=== PATIENT | female | born 1990 | race Caucasian/White ===

== ENCOUNTER 2017-08-04 17:09 | Emergency (ER) | payer MEDICAID ==
[2017-08-04 17:23] VITALS: BP 121/77
[2017-08-04] MEDS ORDERED: Ondansetron 4 MG/2 ML SDV ONE (17:35)
[2017-08-04] MEDS ORDERED: Sodium Chloride 0.9% 1,000 ML ONE (17:35)
--- NOTE | 2017-08-04 18:04 | EDM.PDOC ---
ED HPI GENERAL MEDICAL PROBLEM - General Chief Complaint: General Stated Complaint: VOMITING/FEVER Time Seen by Provider: 08/04/17 17:35 Source of Information: Reports: Patient History Limitations: Reports: No Limitations - History of Present Illness INITIAL COMMENTS - FREE TEXT/NARRATIVE: 27 YO JEFF presents to ER with 3 day history of fever/chills, nausea/vomiting, and body aches. Pt reports she was seen by clinic 3 days ago and started on zpak , and tamiflu and states she began to feel worse. Vomiting started this am. Pt denies any shortness of breath, or chest pain. Onset Date: 08/02/17 Duration: Day(s): (3) Location: Reports: Generalized Severity: Mild Improves with: Reports: None Worsens with: Reports: None Associated Symptoms: Reports: Cough, Fever/Chills, Nausea/Vomiting - Related Data Allergies Allergy/AdvReac Type Severity Reaction Status Date / Time proactive Allergy Hives Uncoded 12/08/14 08:57 Home Meds: Home Meds Acetaminophen/HYDROcodone [Acetaminophen/HYDROcodone 108-2.5 MG/5 ML] 15 ml PO Q6H PRN 08/04/17 [History] Azithromycin [IJD: Azithromycin] 250 mg PO DAILY 08/04/17 [History] Levonorgestrel-Ethin Estradiol [Falmina-28 Tablet] 1 tab PO DAILY 08/04/17 [ History] Ondansetron [Zofran ODT] 4 mg PO Q6H PRN #6 tab.dis 08/04/17 [Rx] Oseltamivir [Tamiflu] 75 mg PO BID 08/04/17 [History] Past Medical History - Past Health History Medical/Surgical History: Denies Medical/Surgical History Social & Family History - Tobacco Use Smoking Status *Q: Current Every Day Smoker Years of Tobacco use: 7 Used Tobacco, but Quit: No Second Hand Smoke Exposure: No - Recreational Drug Use Recreational Drug Use: No ED ROS GENERAL - Review of Systems Review Of Systems: See Below Constitutional: Reports: Fever, Chills, Malaise HEENT: Reports: No Symptoms Respiratory: Reports: No Symptoms Cardiovascular: Reports: No Symptoms Endocrine: Reports: No Symptoms GI/Abdominal: Reports: Vomiting : Reports: No Symptoms Musculoskeletal: Reports: No Symptoms Skin: Reports: No Symptoms Neurological: Reports: No Symptoms Psychiatric: Reports: No Symptoms Hematologic/Lymphatic: Reports: No Symptoms Immunologic: Reports: No Symptoms ED EXAM, GENERAL - Physical Exam Exam: See Below Exam Limited By: No Limitations General Appearance: Alert, WD/WN, No Apparent Distress Nose: Normal Inspection, Normal Mucosa, No Blood Throat/Mouth: Normal Inspection, Normal Lips, Normal Teeth, Normal Gums, Normal Oropharynx, Normal Voice, No Airway Compromise Head: Atraumatic, Normocephalic Neck: Normal Inspection, Supple, Non-Tender, Full Range of Motion Respiratory/Chest: No Respiratory Distress, Lungs Clear, Normal Breath Sounds, No Accessory Muscle Use, Chest Non-Tender Cardiovascular: Normal Peripheral Pulses, Regular Rate, Rhythm, No Edema, No Gallop, No JVD, No Murmur, No Rub GI/Abdominal: Normal Bowel Sounds, Soft, Non-Tender, No Organomegaly, No Distention, No Abnormal Bruit, No Mass Back Exam: Normal Inspection, Full Range of Motion, NT Extremities: Normal Inspection, Normal Range of Motion, Non-Tender, Normal Capillary Refill, No Pedal Edema Neurological: Alert, Oriented, CN II-XII Intact, Normal Cognition, Normal Gait, Normal Reflexes, No Motor/Sensory Deficits Psychiatric: Normal Affect, Normal Mood Skin Exam: Warm, Dry, Intact, Normal Color, No Rash Lymphatic: No Adenopathy Course - Vital Signs Last Recorded V/S: Last Vital Signs Temp 36.4 C 08/04/17 17:21 Pulse 76 08/04/17 17:21 Resp 16 08/04/17 17:21 BP 121/77 08/04/17 17:21 Pulse Ox 95 08/04/17 17:21 - Orders/Labs/Meds Orders: Active Orders 24 hr Category Date Time Status Chest 2V [CR] Stat Exams 08/04/17 17:27 Taken Sodium Chloride 0.9% [Normal Saline] 1,000 ml Med 08/04/17 18:14 Active IV .BOLUS Medication Orders Sodium Chloride (Normal Saline) 1,000 mls @ 999 mls/hr IV .BOLUS ONE Stop: 08/04/17 19:14 Labs: Laboratory Tests 08/04/17 08/04/17 08/04/17 Range/Units 06:35 06:35 17:35 WBC 5.9 (5.0-10.0) 10^3/uL RBC 4.59 (3.80-5.50) 10^6/uL Hgb 13.5 (12.0-16.0) g/dL Hct 41.5 (37.0-47.0) % MCV 90.3 (82.0-92.0) fL MCH 29.5 (27.0-31.0) pg MCHC 32.6 (32.0-36.0) g/dL RDW 12.1 (11.5-14.5) % Plt Count 223 (150-300) 10^3/uL MPV 7.6 (7.4-10.4) fL Neut % (Auto) 48.3 L (50.0-70.0) % Lymph % (Auto) 44.2 H (20.0-40.0) % [place] % (Auto) 6.3 (2.0-8.0) % Eos % (Auto) 1.1 (1.0-3.0) % Baso % (Auto) 0.1 (0.0-1.0) % Neut # (Auto) 2.8 (2.5-7.0) 10^3/uL Lymph # (Auto) 2.6 (1.0-4.0) 10^3/uL [place] # (Auto) 0.4 (0.1-0.8) 10^3/uL Eos # (Auto) 0.1 (0.1-0.3) 10^3/uL Baso # (Auto) 0.0 (0.0-0.1) 10^3/uL Sodium 142 (136-145) mmol/L Potassium 3.9 (3.3-5.3) mmol/L Chloride 106 (98-115) mmol/L Carbon Dioxide 25.0 (21.0-32.0) mmol/L BUN 6 (6-25) mg/dL Creatinine 0.90 (0.51-1.17) mg/dL Est Cr Clr Drug Dosing 80.36 mL/min Estimated GFR (MDRD) > 60 mL/min Glucose 88 (70-110) mg/dL Calcium 8.2 L (8.7-10.3) mg/dL Total Bilirubin 0.3 (0.2-1.0) mg/dL AST 22 (15-37) U/L ALT 32 (12-78) U/L Alkaline Phosphatase 42 L (46-116) IU/L Total Protein 7.2 (6.4-8.2) g/dL Albumin 3.37 (3.00-4.80) g/dL Lipase 80 (73-393) U/L HCG, Qual Negative (NEGATIVE) Specimen Type Urinvoid Urine Color Yellow (YELLOW) Urine Appearance Slightly cloudy H (CLEAR) Urine pH 6.5 (5.0-9.0) Ur Specific [place] 1.025 (1.005-1.030) Urine Protein Negative (NEGATIVE) mg/dL Urine Glucose (UA) Negative (NEGATIVE) mg/dL Urine Ketones Trace H (NEGATIVE) mg/dL Urine Occult Blood Negative (NEGATIVE) Urine Nitrite Negative (NEGATIVE) Urine Bilirubin Negative (NEGATIVE) Urine Urobilinogen 1.0 (0.2-1.0) E.U./dL Ur Leukocyte Esterase Trace H (NEGATIVE) Urine RBC 0-5 /HPF Urine WBC 5-10 H /HPF Ur Epithelial Cells Moderate H /LPF Urine Bacteria Few (NONE TO FEW) /HPF Meds: Medications Generic Name Dose Route Start Last Admin Trade Name Freq PRN Reason Stop Dose Admin Sodium Chloride 1,000 mls @ 999 mls/hr 08/04/17 18:14 Normal Saline IV 08/04/17 19:14 .BOLUS ONE Discontinued Medications Generic Name Dose Route Start Last Admin Trade Name Freq PRN Reason Stop Dose Admin Sodium Chloride Confirm 08/04/17 17:35 08/04/17 18:13 Normal Saline Administered 08/04/17 17:36 Not Given Dose 1,000 mls @ as directed .ROUTE .STK-MED ONE Ondansetron HCl Confirm 08/04/17 17:35 08/04/17 18:13 Zofran Administered 08/04/17 17:36 Not Given Dose 4 mg .ROUTE .STK-MED ONE Ondansetron HCl 4 mg 08/04/17 18:14 Zofran IVPUSH 08/04/17 18:15 ONETIME ONE - Radiology Interpretation Free Text/Narrative:: CXR- NAD Departure - Departure Time of Disposition: 18:16 Disposition: Home, Self-Care 01 Condition: Fair Clinical Impression: Viral illness, Fever chills - Discharge Information Prescriptions: Ondansetron [Zofran ODT] 4 mg PO Q6H PRN #6 tab.dis PRN Reason: Vomiting Instructions: Nausea, Adult, Upper Respiratory Infection, Adult, [id number] Referrals: Elizabeth Begum PA-C [Primary Care Provider] - Forms: ED Department Discharge - My Orders Last 24 Hours: My Active Orders 08/04/17 17:27 Chest 2V [CR] Stat 08/04/17 18:14 Sodium Chloride 0.9% [Normal Saline] 1,000 ml IV .BOLUS - Assessment/Plan Last 24 Hours: My Active Orders 08/04/17 17:27 Chest 2V [CR] Stat 08/04/17 18:14 Sodium Chloride 0.9% [Normal Saline] 1,000 ml IV .BOLUS Assessment:: 1. viral syndrome 2. vomiting Plan: 1. stop zpak 2. stop tamiflu 3. start zofran 4mg ODT Q8 PRN vomiting 4. clear liquid diet and progress as tolerated 5. follow up in clinic in 48 hours for recheck 6. tylenol/motrin for fever/chills and body aches
[2017-08-04 18:08] LABS: CHLORIDE,CL 106 mmol/L (98-115); SODIUM,NA 142 mmol/L (136-145)
[2017-08-04] MEDS ORDERED: Sodium Chloride 0.9% 1,000 ML IV ONE (18:14)
[2017-08-04] MEDS ORDERED: Ondansetron 4 MG/2 ML SDV IVPUSH ONE (18:14)
[2017-08-04] MEDS ORDERED: Ondansetron 4 MG Tab.DIS PO PRN (18:17)
== END 2017-08-04 19:00 | disposition home or self-care (01) ==
LOC: KA.ED 17:09
DX: B34.9 Viral infection, unspecified (principal); F17.200 Nicotine dependence, unspecified, uncomplicated; Z79.2 Long term (current) use of antibiotics
CPT/HCPCS: 36415; 71046; 80053; 81001; 83690; 84703; 85025; 96361; 96374; 99283; A9270; J2405; J7030

== ENCOUNTER 2019-06-29 10:51 | Emergency (ER) | payer BC, MEDICAID ==
[2019-06-29 11:10] VITALS: BP 119/78; PULSE 90
[2019-06-29] MEDS ORDERED: cefTRIAXone 1 GM Vial IM ONE (11:27)
[2019-06-29] MEDS ORDERED: Ondansetron 4 MG Tab.DIS PO ONE ×2 (11:33)
[2019-06-29] MEDS ORDERED: Lidocaine 1% 20 ML MDV ONE (11:37)
--- NOTE | 2019-06-29 11:37 | EDM.PDOC ---
ED HPI GENERAL MEDICAL PROBLEM - General Chief Complaint: General Stated Complaint: FEVERS,LEFT SIDE JAW PAIN Time Seen by Provider: 06/29/19 11:26 Source of Information: Reports: Patient History Limitations: Reports: No Limitations - History of Present Illness INITIAL COMMENTS - FREE TEXT/NARRATIVE: Patient is a 28-year-old female who presents to the emergency department this morning with a complaint of toothache. Patient states that she underwent dental procedure on June 27 for tooth extraction. Patient states she's had pain in left upper jaw since. Feels she is febrile. Patient is 12 weeks . Patient denies vaginal bleeding, abdominal pain or cramping, difficulty swallowing, chest pain, shortness of breath, or any high risk . 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 Left Face/Facial Pain Score (Numeric/FACES): 8 - Related Data Allergies Allergy/AdvReac Type Severity Reaction Status Date / Time proactive Allergy Swelling Uncoded 06/29/19 11:05 Home Meds: Home Meds Acetaminophen [Tylenol] 650 mg pe PO Q4HWA 06/29/19 [History] Amoxicillin/Clavulanate K [Augmentin 875-125 MG] 1 tab PO BID #14 tablet [Rx] Pnv No.95/Ferrous Fum/Folic AC [ Multivitamin Tablet] 1 tab PO DAILY [History] Past Medical History - Past Health History Medical/Surgical History: Denies Medical/Surgical History Gastrointestinal History: Reports: Cholelithiasis, Gastritis, PUD Musculoskeletal History: Reports: Arthritis, Back Pain, Chronic, Osteoarthritis , Other (See Below) Other Musculoskeletal History: Patient with chronic low back pain with evidence of T11-T12 right paracentral disc prolapse by incidental finding on CT scan of the abdomen on 07/03/18. Psychiatric History: Reports: Addiction, Anxiety, Depression, Psych Hospitalization(s), Suicide Attempt, Suicidal Ideation, Other (See Below) Other Psychiatric History: History of probable alcohol and illicit drug abuse per emergency room note in this facility on 02/09/11 with patient referred to [facility] in [place] at that time. Patient denies previous substance abuse problem, however previous records show an additional previous inpatient treatment for substance abuse, depression, etc. even before previous referral. Endocrine/Metabolic History: Reports: Obesity/BMI 30+ - Past Surgical History GI Surgical History: Reports: Appendectomy, Cholecystectomy, EGD, Other (See Below) Other GI Surgeries/Procedures: Appendectomy at age 16. Laparoscopic cholecystectomy on 05/27/18. EGD with biopsy with possible gastric ulcer diagnosed on 07/12/18. - Past Imaging History Past Imaging History: Reports: CAT Scan (CT of the abdomen and pelvis with contrast on 07/03/18. CT of the brain on 12/01/15.), MRI (MRI of the pelvis on 05/01.), Ultrasound (Abdominal ultrasound on 01/31/18 with pelvic ultrasound on . Multiple previous OB ultrasounds.) Social & Family History - Family History Family Medical History: Noncontributory - Tobacco Use Smoking Status *Q: Current Every Day Smoker Years of Tobacco use: 7 Packs/Tins Daily: 1 - Caffeine Use Caffeine Use: Reports: Soda - Recreational Drug Use Recreational Drug Use: No - Living Situation & Occupation Living situation: Reports: Single, with Significant Other (And her 2 children from another significant other relationship). Denies: , Occupation: Employed ([employer] ED ROS GENERAL - Review of Systems Review Of Systems: Comprehensive ROS is negative, except as noted in HPI. Constitutional: Reports: Fever HEENT: Reports: Dental Pain. Denies: Throat Pain, Throat Swelling Respiratory: Reports: No Symptoms Cardiovascular: Reports: No Symptoms Endocrine: Reports: No Symptoms GI/Abdominal: Reports: No Symptoms : Reports: No Symptoms Musculoskeletal: Reports: No Symptoms Skin: Reports: No Symptoms Neurological: Reports: No Symptoms Psychiatric: Reports: No Symptoms Hematologic/Lymphatic: Reports: No Symptoms Immunologic: Reports: No Symptoms ED EXAM, GENERAL - Physical Exam Exam: See Below Exam Limited By: No Limitations General Appearance: Alert, WD/WN Eye Exam: Bilateral Eye: Normal Inspection Ears: Normal Canal, Normal TMs Nose: Normal Inspection, Normal Mucosa, No Blood Throat/Mouth: Normal Oropharynx, Other (Left upper molar area of extraction shows mild erythema. No buccal involvement or abscess noted) Head: Atraumatic, Normocephalic Neck: Normal Inspection, Supple. No: Lymphadenopathy (L), Lymphadenopathy (R) Respiratory/Chest: No Respiratory Distress, Lungs Clear, Normal Breath Sounds, No Accessory Muscle Use, Chest Non-Tender Cardiovascular: Normal Peripheral Pulses, Regular Rate, Rhythm, No Murmur GI/Abdominal: Normal Bowel Sounds, Soft, Non-Tender Back Exam: Normal Inspection. No: CVA Tenderness (L), CVA Tenderness (R) Extremities: Normal Inspection, No Pedal Edema Neurological: Alert, Oriented, Normal Cognition Psychiatric: Normal Affect, Normal Mood Skin Exam: Warm, Dry, Intact, Normal Color, No Rash Lymphatic: No Adenopathy Course - Vital Signs Last Recorded V/S: Last Vital Signs Temp 97.6 F 06/29/19 11:06 Pulse 90 06/29/19 11:06 Resp 20 06/29/19 11:06 BP 119/78 06/29/19 11:06 Pulse Ox 98 06/29/19 11:06 - Orders/Labs/Meds Meds: Medications Discontinued Medications Generic Name Dose Route Start Last Admin Trade Name Freq PRN Reason Stop Dose Admin Ceftriaxone Sodium 1 gm 06/29/19 11:27 Rocephin IM 06/29/19 11:28 ONETIME ONE - Re-Assessments/Exams Free Text/Narrative Re-Assessment/Exam: 06/29/19 11:41 Patient afebrile, vital signs stable, given 1 g Rocephin IM and 4 mg Zofran. Patient is 12 weeks . Narcotics will be held at this point. Patient given prescription for Augmentin and instructed to follow-up with dentist tomorrow. Departure - Departure Time of Disposition: 11:42 Disposition: Home, Self-Care 01 Condition: Good Clinical Impression: Dental infection, Toothache - Discharge Information Prescriptions: Amoxicillin/Clavulanate K [Augmentin 875-125 MG] 1 tab PO BID #14 tablet Instructions: Dental Extraction, Care After, [id number], Dental Dry Socket, [id number] Referrals: Malolry Galarza NP [Primary Care Provider] - Additional Instructions: Follow-up with dentist tomorrow. Take medication as directed. Return to emergency department if symptoms continue or worsen. Sepsis Event Note - Evaluation Sepsis Screening Result: No Definite Risk - Focused Exam Vital Signs: Vital Signs Temp Pulse Resp BP Pulse Ox 06/29/19 11:06 97.6 F 90 20 119/78 98 Date Exam was Performed: 06/29/19 Time Exam was Performed: 11:31 - Assessment/Plan Assessment:: Dental infection Plan: Follow-up with dentist on Sunday
== END 2019-06-29 12:05 | disposition home or self-care (01) ==
LOC: KA.ED 10:51
DX: O99.611 Diseases of the digestive system complicating pregnancy, first trimester (principal); K04.7 Periapical abscess without sinus; O99.211 Obesity complicating pregnancy, first trimester; E66.9 Obesity, unspecified; O99.331 Smoking (tobacco) complicating pregnancy, first trimester; F17.210 Nicotine dependence, cigarettes, uncomplicated; Z91.09 Other allergy status, other than to drugs and biological substances; Z3A.12 12 weeks gestation of pregnancy
CPT/HCPCS: 96372; 99283-25; 99284; A9270-GY; J0696

== ENCOUNTER 2022-08-30 20:29 | Emergency (ER) | payer MEDICAID ==
[2022-08-30 20:58] VITALS: BP 145/103; PULSE 101
[2022-08-30] MEDS ORDERED: Cefdinir 300 MG Cap PO ONE (21:31)
== END 2022-08-30 21:40 | disposition home or self-care (01) ==
LOC: KA.ED 20:29
DX: J02.9 Acute pharyngitis, unspecified (principal); H66.93 Otitis media, unspecified, bilateral; F17.210 Nicotine dependence, cigarettes, uncomplicated; E66.9 Obesity, unspecified; Z68.41 Body mass index [BMI] 40.0-44.9, adult; Z88.8 Allergy status to other drugs, medicaments and biological substances; Z79.899 Other long term (current) drug therapy
CPT/HCPCS: 71045; 87651-QW; 99283; A9270-GY

== ENCOUNTER 2022-10-31 06:28 | Day surgery (SDC) | payer MEDICAID ==
[2022-10-31] MEDS ORDERED: Lactated Ringers 1,000 ML IV SCH (06:30)
[2022-10-31] MEDS ORDERED: Sodium Chloride 0.9% 10 ML Syringe FLUSH PRN (06:30)
[2022-10-31] MEDS ORDERED: Albuterol/Ipratropium 3.0-0.5 MG/3 ML Neb Soln NEB ONE (07:28)
[2022-10-31] MEDS ORDERED: Propofol 200 MG/20 ML SDV ONE (07:35)
[2022-10-31] MEDS ORDERED: Midazolam 1 MG/ML 2 ML SDV ONE (07:35)
[2022-10-31] MEDS ORDERED: Glycopyrrolate 0.2 MG/ML SDV ONE (07:36)
[2022-10-31] MEDS ORDERED: Lidocaine 2% 5 ML SDV ONE (07:36)
[2022-10-31 10:34] VITALS: BP 126/65; PULSE 95
== END 2022-10-31 09:50 | disposition home or self-care (01) ==
LOC: KA.SDS 06:28
PROVIDERS: ATTEND Family Medicine
DX: K21.00 Gastro-esophageal reflux disease with esophagitis, without bleeding (principal); K29.70 Gastritis, unspecified, without bleeding; K44.9 Diaphragmatic hernia without obstruction or gangrene; K25.9 Gastric ulcer, unspecified as acute or chronic, without hemorrhage or perforation; F17.210 Nicotine dependence, cigarettes, uncomplicated; Z79.899 Other long term (current) drug therapy; Z86.16 Personal history of COVID-19; Z88.3 Allergy status to other anti-infective agents
CPT/HCPCS: 00731; 81025; J2250; J2704; J3490; J7120; J7620-GY

== ENCOUNTER 2022-11-20 21:40 | Emergency (ER) | payer MEDICAID ==
[2022-11-20 22:15] LABS: BASOPHILS ABSOLUTE AUTO 0.01 10^3/uL (0.00-0.10); BASOPHILS PERCENT AUTO 0.2 % (0.0-1.0); EOSINOPHILS ABSOLUTE AUTO 0.05 10^3/uL (0.10-0.30); EOSINOPHILS PERCENT AUTO 0.8 % (1.0-3.0); HEMATOCRIT 36.4 % (37.0-47.0); HEMOGLOBIN 11.7 g/dL (12.0-16.0); IMMATURE GRAN ABSOLUTE AUTO 0.01 10^3/uL (0.00-0.50); IMMATURE GRAN PERCENT AUTO 0.2 % (0.0-5.0); LYMPHOCYTES ABSOLUTE AUTO 2.36 10^3/uL (1.00-4.00); LYMPHOCYTES PERCENT AUTO 39.9 % (20.0-40.0); MEAN CORPUSCULAR HEMOGLOBIN 26.7 pg (27.0-31.0); MEAN CORPUSCULAR HGB CONC 32.1 g/dL (32.0-36.0); MEAN CORPUSCULAR VOLUME 83.1 fL (82.0-92.0); MEAN PLATELET VOLUME 9.5 fL (7.4-10.4); MONOCYTES ABSOLUTE AUTO 0.39 10^3/uL (0.10-0.80); MONOCYTES PERCENT AUTO 6.6 % (2.0-8.0); NEUTROPHILS PERCENT AUTO 52.3 % (50.0-70.0); PLATELET COUNT,PLT 232 10^3/uL (150-400); RED BLOOD CELL COUNT 4.38 10^6/uL (3.80-5.50); RED CELL DISTRIBUTION WIDTH 14.5 % (11.5-14.5); WHITE BLOOD CELL COUNT,WBC 5.92 10^3/uL (5.00-10.00)
[2022-11-20 22:30] LABS: ALBUMIN 3.42 g/dL (3.40-5.00); ANION GAP 15.4 mmol/L (5-15); BILIRUBIN TOTAL 0.2 mg/dL (0.2-1.0); CALCIUM 8.6 mg/dL (8.7-10.3); CARBON DIOXIDE,CO2 27.4 mmol/L (21.0-32.0); CREATININE 0.88 mg/dL (0.51-1.17); EST CRCL DRUG DOSING (CG) 78.52 mL/min; POTASSIUM,K 3.8 mmol/L (3.5-5.1); PROTEIN TOTAL,TP 7.1 g/dL (6.4-8.2)
[2022-11-20 22:53] LABS: INFLUENZA A NAA NEGATIVE (NEGATIVE); INFLUENZA B NAA NEGATIVE (NEGATIVE); RESPIRATORY SYNCYTIAL VIR NAA NEGATIVE (NEGATIVE)
[2022-11-20 22:55] LABS: CORONAVIRUS COVID-19 NAA NEGATIVE (NEGATIVE)
[2022-11-21 00:34] VITALS: BP 142/90; PULSE 82
== END 2022-11-20 23:15 | disposition home or self-care (01) ==
LOC: KA.ED 21:40
DX: R05.3 Chronic cough (principal); K44.9 Diaphragmatic hernia without obstruction or gangrene; D64.9 Anemia, unspecified; J45.909 Unspecified asthma, uncomplicated; K21.9 Gastro-esophageal reflux disease without esophagitis; F17.210 Nicotine dependence, cigarettes, uncomplicated; E66.9 Obesity, unspecified; Z79.899 Other long term (current) drug therapy; Z86.16 Personal history of COVID-19; Z20.822 Contact with and (suspected) exposure to COVID-19; Z68.39 Body mass index [BMI] 39.0-39.9, adult
CPT/HCPCS: 0241U; 71046; 80053; 85025; 99283; 99284

== ENCOUNTER 2023-02-04 05:30 | Emergency (ER) | payer MEDICAID ==
[2023-02-04] MEDS ORDERED: Sodium Chloride 0.9% 10 ML Syringe FLUSH PRN (05:33)
[2023-02-04] MEDS ORDERED: Sodium Chloride 0.9% 1,000 ML IV ONE (05:35)
[2023-02-04] MEDS ORDERED: Ondansetron 4 MG/2 ML SDV ONE (05:43)
[2023-02-04] MEDS ORDERED: Ondansetron 4 MG/2 ML SDV IVPUSH ONE (05:43)
[2023-02-04 05:58] LABS: BASOPHILS ABSOLUTE AUTO 0.02 10^3/uL (0.00-0.10); BASOPHILS PERCENT AUTO 0.3 % (0.0-1.0); EOSINOPHILS ABSOLUTE AUTO 0.07 10^3/uL (0.10-0.30); EOSINOPHILS PERCENT AUTO 0.9 % (1.0-3.0); HEMATOCRIT 38.7 % (37.0-47.0); HEMOGLOBIN 12.7 g/dL (12.0-16.0); IMMATURE GRAN ABSOLUTE AUTO 0.04 10^3/uL (0.00-0.50); IMMATURE GRAN PERCENT AUTO 0.5 % (0.0-5.0); MEAN CORPUSCULAR HEMOGLOBIN 28.1 pg (27.0-31.0); MEAN CORPUSCULAR HGB CONC 32.8 g/dL (32.0-36.0); MEAN CORPUSCULAR VOLUME 85.6 fL (82.0-92.0); MEAN PLATELET VOLUME 9.1 fL (7.4-10.4); MONOCYTES ABSOLUTE AUTO 0.37 10^3/uL (0.10-0.80); MONOCYTES PERCENT AUTO 4.7 % (2.0-8.0); NEUTROPHILS ABSOLUTE AUTO 4.82 10^3/uL (2.50-7.00); NEUTROPHILS PERCENT AUTO 61.6 % (50.0-70.0); PLATELET COUNT,PLT 251 10^3/uL (150-400); RED BLOOD CELL COUNT 4.52 10^6/uL (3.80-5.50); RED CELL DISTRIBUTION WIDTH 14.3 % (11.5-14.5); WHITE BLOOD CELL COUNT,WBC 7.82 10^3/uL (5.00-10.00)
[2023-02-04 06:22] LABS: ALANINE AMINOTRANSFERASE,ALT 77 U/L (14-63); ALBUMIN 3.55 g/dL (3.40-5.00); ALKALINE PHOSPHATASE 60 U/L (46-116); ASPARTATE AMNIOTRANSFERASE,AST 54 U/L (15-37); BILIRUBIN TOTAL 0.3 mg/dL (0.2-1.0); BLOOD UREA NITROGEN,BUN 7 mg/dL (7-18); CALCIUM 8.1 mg/dL (8.7-10.3); CARBON DIOXIDE,CO2 27.3 mmol/L (21.0-32.0); CHLORIDE,CL 101 mmol/L (98-107); CREATININE 0.88 mg/dL (0.51-1.17); EST CRCL DRUG DOSING (CG) 81.82 mL/min; GLUCOSE RANDOM 125 mg/dL (70-140); POTASSIUM,K 3.3 mmol/L (3.5-5.1); PROTEIN TOTAL,TP 7.3 g/dL (6.4-8.2); SODIUM,NA 142 mmol/L (136-145)
[2023-02-04 06:35] LABS: ESTIMATED GFR 89 mL/min (>=60)
[2023-02-04 06:36] LABS: ACETAMINOPHEN < 0.0 ug/mL (10.0-30.0)
[2023-02-04 06:37] LABS: ETHANOL BLOOD MEDICAL 240 mg/dL (NOT DETECTED)
[2023-02-04] MEDS ORDERED: Sodium Chloride 0.9% 1,000 ML ONE (06:52)
[2023-02-04] MEDS ORDERED: Sodium Chloride 0.9% 1,000 ML IV SCH (07:00)
[2023-02-04 07:46] VITALS: BP 130/78; PULSE 96
== END 2023-02-04 07:40 ==
LOC: KA.ED 05:30
DX: T39.312A Poisoning by propionic acid derivatives, intentional self-harm, initial encounter (principal); F10.920 Alcohol use, unspecified with intoxication, uncomplicated; J45.909 Unspecified asthma, uncomplicated; K21.9 Gastro-esophageal reflux disease without esophagitis; E66.9 Obesity, unspecified; Z68.41 Body mass index [BMI] 40.0-44.9, adult; Z79.899 Other long term (current) drug therapy; Z86.16 Personal history of COVID-19; Z88.8 Allergy status to other drugs, medicaments and biological substances
CPT/HCPCS: 71045; 80053; 80143; 80307; 83605; 84703; 85025; 93005; 93010; 96361; 96374; 99284; 99285-25; J2405; J7030

== ENCOUNTER 2024-02-12 04:36 | Inpatient (IN) | payer MEDICAID ==
[2024-02-12] MEDS: Ondansetron 4 MG/2 ML SDV IVPUSH ONE (05:05)
[2024-02-12] MEDS: Sodium Chloride 0.9% 1,000 ML IV ONE ×2 (05:05→06:06)
[2024-02-12 05:19] LABS: BASOPHILS ABSOLUTE AUTO 0.01 10^3/uL (0.00-0.10); BASOPHILS PERCENT AUTO 0.1 % (0.0-1.0); EOSINOPHILS ABSOLUTE AUTO 0.06 10^3/uL (0.10-0.30); EOSINOPHILS PERCENT AUTO 0.7 % (1.0-3.0); HEMATOCRIT 39.8 % (37.0-47.0); HEMOGLOBIN 12.9 g/dL (12.0-16.0); IMMATURE GRAN ABSOLUTE AUTO 0.03 10^3/uL (0.00-0.50); IMMATURE GRAN PERCENT AUTO 0.3 % (0.0-5.0); LYMPHOCYTES ABSOLUTE AUTO 3.87 10^3/uL (1.00-4.00); LYMPHOCYTES PERCENT AUTO 43.5 % (20.0-40.0); MEAN CORPUSCULAR HEMOGLOBIN 26.9 pg (27.0-31.0); MEAN CORPUSCULAR HGB CONC 32.4 g/dL (32.0-36.0); MEAN CORPUSCULAR VOLUME 82.9 fL (82.0-92.0); MEAN PLATELET VOLUME 9.4 fL (7.4-10.4); MONOCYTES ABSOLUTE AUTO 0.57 10^3/uL (0.10-0.80); MONOCYTES PERCENT AUTO 6.4 % (2.0-8.0); NEUTROPHILS ABSOLUTE AUTO 4.36 10^3/uL (2.50-7.00); PLATELET COUNT,PLT 278 10^3/uL (150-400); RED CELL DISTRIBUTION WIDTH 14.7 % (11.5-14.5)
[2024-02-12 05:32] LABS: ACETAMINOPHEN 293.3 ug/mL (10.0-30.0); ALBUMIN 3.52 g/dL (3.40-5.00); ANION GAP 15.5 mmol/L (5-15); BILIRUBIN TOTAL 0.2 mg/dL (0.2-1.0); CALCIUM 8.1 mg/dL (8.7-10.3); CARBON DIOXIDE,CO2 26.9 mmol/L (21.0-32.0); CREATININE 0.9 mg/dL (0.51-1.17); EST CRCL DRUG DOSING (CG) 79.25 mL/min; POTASSIUM,K 3.4 mmol/L (3.5-5.1); PROTEIN TOTAL,TP 7.6 g/dL (6.4-8.2)
[2024-02-12] MEDS: Omeprazole 20 MG Cap.CR PO ONE (06:32)
[2024-02-12 08:19] LABS: ACETAMINOPHEN 269.3 ug/mL (10.0-30.0)
[2024-02-12] MEDS: Acetylcysteine 15,000 MG in Dextrose 5% in Water 200 ML IV ONE (09:07)
[2024-02-12] MEDS: Sodium Chloride 0.9% 1,000 ML IV SCH (09:14)
[2024-02-12] MEDS: Acetylcysteine 5,000 MG in Dextrose 5% in Water 500 ML IV ONE (10:21)
[2024-02-12] MEDS: Sodium Chloride 0.9% 1,000 ML ONE (10:21)
[2024-02-12] MEDS ORDERED: Ondansetron 4 MG/2 ML SDV IV PRN (11:30)
[2024-02-12] MEDS ORDERED: Albuterol 8 GM Inhaler INH PRN (11:34)
[2024-02-12 12:04] LABS: ALBUMIN 2.91 g/dL (3.40-5.00); ANION GAP 17.2 mmol/L (5-15); BILIRUBIN TOTAL 0.2 mg/dL (0.2-1.0); CALCIUM 7.4 mg/dL (8.7-10.3); CARBON DIOXIDE,CO2 23.8 mmol/L (21.0-32.0); CREATININE 0.58 mg/dL (0.51-1.17); EST CRCL DRUG DOSING (CG) 122.98 mL/min; PROTEIN TOTAL,TP 6.7 g/dL (6.4-8.2)
[2024-02-12 12:15] LABS: INR 1.1 (0.9-1.1)
[2024-02-12] MEDS: Topiramate 25 MG Tab PO SCH (13:22)
[2024-02-12] MEDS: Thiamine 100 MG Tab PO SCH (13:22)
[2024-02-12] MEDS: Folic Acid 1 MG Tab PO SCH (13:22)
[2024-02-12] MEDS: Acetylcysteine 10,000 MG in Dextrose 5% in Water 1,000 ML IV ONE (14:26)
[2024-02-12] MEDS: Nicotine 14 MG/24 Hr Patch TRDERM SCH (19:28)
[2024-02-12] MEDS: QUEtiapine 25 MG Tab PO SCH (21:05)
[2024-02-13 04:39] LABS: BASOPHILS ABSOLUTE AUTO 0.02 10^3/uL (0.00-0.10); BASOPHILS PERCENT AUTO 0.3 % (0.0-1.0); EOSINOPHILS ABSOLUTE AUTO 0.07 10^3/uL (0.10-0.30); EOSINOPHILS PERCENT AUTO 1.2 % (1.0-3.0); HEMATOCRIT 33.2 % (37.0-47.0); HEMOGLOBIN 10.6 g/dL (12.0-16.0); IMMATURE GRAN ABSOLUTE AUTO 0.02 10^3/uL (0.00-0.50); IMMATURE GRAN PERCENT AUTO 0.3 % (0.0-5.0); LYMPHOCYTES ABSOLUTE AUTO 2.84 10^3/uL (1.00-4.00); LYMPHOCYTES PERCENT AUTO 47.1 % (20.0-40.0); MEAN CORPUSCULAR HEMOGLOBIN 26.8 pg (27.0-31.0); MEAN CORPUSCULAR HGB CONC 31.9 g/dL (32.0-36.0); MEAN CORPUSCULAR VOLUME 84.1 fL (82.0-92.0); NEUTROPHILS ABSOLUTE AUTO 2.78 10^3/uL (2.50-7.00); NEUTROPHILS PERCENT AUTO 46.1 % (50.0-70.0); PLATELET COUNT,PLT 204 10^3/uL (150-400); RED BLOOD CELL COUNT 3.95 10^6/uL (3.80-5.50); WHITE BLOOD CELL COUNT,WBC 6.03 10^3/uL (5.00-10.00)
[2024-02-13 04:50] LABS: ACETAMINOPHEN 1.4 ug/mL (10.0-30.0); ALBUMIN 2.5 g/dL (3.40-5.00); ANION GAP 11.1 mmol/L (5-15); BILIRUBIN TOTAL 0.2 mg/dL (0.2-1.0); CALCIUM 7.8 mg/dL (8.7-10.3); CARBON DIOXIDE,CO2 26.8 mmol/L (21.0-32.0); CREATININE 0.9 mg/dL (0.51-1.17); EST CRCL DRUG DOSING (CG) 79.13 mL/min; POTASSIUM,K 3.9 mmol/L (3.5-5.1); PROTEIN TOTAL,TP 5.8 g/dL (6.4-8.2)
[2024-02-13 05:04] LABS: INR 1.1 (0.9-1.1); PROTHROMBIN TIME 11.3 SEC (9.3-12.2)
[2024-02-13] MEDS: Acetylcysteine 10,000 MG in Dextrose 5% in Water 1,000 ML IV ONE (07:06)
[2024-02-13] MEDS: Pantoprazole 40 MG Tab.CR PO SCH (09:36)
[2024-02-13] MEDS: FLUoxetine 10 MG Cap PO SCH (09:36)
[2024-02-13] MEDS: QUEtiapine 25 MG Tab PO SCH (09:39)
[2024-02-13 10:39] LABS: ALBUMIN 2.77 g/dL (3.40-5.00); BILIRUBIN TOTAL 0.2 mg/dL (0.2-1.0); CALCIUM 8.4 mg/dL (8.7-10.3); CARBON DIOXIDE,CO2 26.1 mmol/L (21.0-32.0); CREATININE 0.8 mg/dL (0.51-1.17); EST CRCL DRUG DOSING (CG) 89.02 mL/min; POTASSIUM,K 4.1 mmol/L (3.5-5.1); PROTEIN TOTAL,TP 6.4 g/dL (6.4-8.2)
[2024-02-13 11:35] VITALS: BP 113/80; PULSE 81
[2024-02-13] MEDS ORDERED: QUEtiapine 25 MG Tab PO SCH (21:00)
== END 2024-02-13 11:33 | disposition home or self-care (01) | DRG 918 ==
LOC: KA.ED 04:36 → KA.MS 09:34
PROVIDERS: ADMIT Internal Medicine; ATTEND Internal Medicine
DX: T39.1X4A Poisoning by 4-Aminophenol derivatives, undetermined, initial encounter (principal); T39.1X2A Poisoning by 4-Aminophenol derivatives, intentional self-harm, initial encounter; F10.920 Alcohol use, unspecified with intoxication, uncomplicated; Z86.16 Personal history of COVID-19; T14.91XA Suicide attempt, initial encounter; J45.909 Unspecified asthma, uncomplicated; K21.9 Gastro-esophageal reflux disease without esophagitis; M19.90 Unspecified osteoarthritis, unspecified site; M54.50 Low back pain, unspecified; G89.29 Other chronic pain; E66.9 Obesity, unspecified; R74.8 Abnormal levels of other serum enzymes; K44.9 Diaphragmatic hernia without obstruction or gangrene; F41.8 Other specified anxiety disorders; Z88.8 Allergy status to other drugs, medicaments and biological substances; Z79.51 Long term (current) use of inhaled steroids; Z79.899 Other long term (current) drug therapy; Z87.11 Personal history of peptic ulcer disease; Z68.39 Body mass index [BMI] 39.0-39.9, adult; Z90.49 Acquired absence of other specified parts of digestive tract; Z98.890 Other specified postprocedural states
CPT/HCPCS: 36415; 80053; 80143; 80179; 80307; 85025; 85610; 96361; 96365; 96375; 99223-GT; 99238-GT; 99285-25; A9270-GY; J0132; J2405; J7030; J7060; Q3014

== ENCOUNTER 2024-11-21 03:42 | Emergency (ER) | payer MEDICAID ==
[2024-11-21 04:25] LABS: BASOPHILS ABSOLUTE AUTO 0.01 10^3/uL (0.00-0.10); BASOPHILS PERCENT AUTO 0.1 % (0.0-1.0); HEMATOCRIT 41.1 % (37.0-47.0); HEMOGLOBIN 13.9 g/dL (12.0-16.0); IMMATURE GRAN ABSOLUTE AUTO 0.03 10^3/uL (0.00-0.04); IMMATURE GRAN PERCENT AUTO 0.3 % (0.0-0.4); LYMPHOCYTES ABSOLUTE AUTO 3.65 10^3/uL (1.00-4.00); LYMPHOCYTES PERCENT AUTO 36.4 % (20.0-40.0); MEAN CORPUSCULAR HEMOGLOBIN 29.5 pg (27.0-31.0); MEAN CORPUSCULAR HGB CONC 33.8 g/dL (32.0-36.0); MEAN CORPUSCULAR VOLUME 87.3 fL (82.0-92.0); MEAN PLATELET VOLUME 9.3 fL (7.4-10.4); MONOCYTES ABSOLUTE AUTO 0.48 10^3/uL (0.10-0.80); MONOCYTES PERCENT AUTO 4.8 % (2.0-8.0); NEUTROPHILS ABSOLUTE AUTO 5.76 10^3/uL (2.50-7.00); NEUTROPHILS PERCENT AUTO 57.4 % (50.0-70.0); PLATELET COUNT,PLT 296 10^3/uL (150-400); RED BLOOD CELL COUNT 4.71 10^6/uL (3.80-5.50); RED CELL DISTRIBUTION WIDTH 13.2 % (11.5-14.5); WHITE BLOOD CELL COUNT,WBC 10.03 10^3/uL (5.00-10.00)
[2024-11-21 04:37] LABS: ANION GAP 14.9 mmol/L (5-15); BLOOD UREA NITROGEN,BUN 4 mg/dL (7-18); CALCIUM 8.7 mg/dL (8.7-10.3); CARBON DIOXIDE,CO2 26.8 mmol/L (21.0-32.0); CHLORIDE,CL 106 mmol/L (98-107); CREATININE 0.68 mg/dL (0.51-1.17); ESTIMATED GFR 116 mL/min (>=60); GLUCOSE RANDOM 145 mg/dL (70-140); POTASSIUM,K 3.7 mmol/L (3.5-5.1); SODIUM,NA 144 mmol/L (136-145)
[2024-11-21 04:41] LABS: ETHANOL BLOOD MEDICAL 274 mg/dL (<3)
[2024-11-21 04:51] LABS: AMPHETAMINES SCREEN, URINE NEGATIVE (NEGATIVE); BARBITURATE SCREEN,URINE NEGATIVE (NEGATIVE); BENZODIAZEPINES SCREEN,URINE NEGATIVE (NEGATIVE); COCAINE METABOLITES,URINE NEGATIVE (NEGATIVE); METHADONE SCREEN, URINE NEGATIVE (NEGATIVE); METHAMPHETAMINES SCREEN, URINE NEGATIVE (NEGATIVE); OXYCODONE SCREEN,URINE NEGATIVE (NEGATIVE); PCP SCREEN,URINE NEGATIVE (NEGATIVE); TCA SCREEN,URINE NEGATIVE (NEGATIVE); THC SCREEN,URINE 50 NG/ML NEGATIVE (NEGATIVE)
[2024-11-21] MEDS: Sodium Chloride 0.9% 1,000 ML IV ONE (04:55)
[2024-11-21] MEDS: Ibuprofen 600 MG Tab PO ONE (07:53)
[2024-11-21 09:35] VITALS: BP 109/49; PULSE 101
== END 2024-11-21 07:53 | disposition home or self-care (01) ==
LOC: KA.ED 03:42
DX: F10.129 Alcohol abuse with intoxication, unspecified (principal); J45.909 Unspecified asthma, uncomplicated; Z88.8 Allergy status to other drugs, medicaments and biological substances; Z79.899 Other long term (current) drug therapy; Z79.51 Long term (current) use of inhaled steroids; Z86.16 Personal history of COVID-19; Y90.9 Presence of alcohol in blood, level not specified
CPT/HCPCS: 36415; 80048; 80305-QW; 80307; 85025; 96360; 99283; 99284-25; J7030

== ENCOUNTER 2024-12-05 04:32 | Emergency (ER) | payer MEDICAID ==
[2024-12-05] MEDS ORDERED: Sodium Chloride 0.9% 10 ML Syringe FLUSH PRN (05:30)
[2024-12-05 05:48] LABS: BASOPHILS ABSOLUTE AUTO 0.03 10^3/uL (0.00-0.10); BASOPHILS PERCENT AUTO 0.3 % (0.0-1.0); EOSINOPHILS ABSOLUTE AUTO 0.07 10^3/uL (0.10-0.30); EOSINOPHILS PERCENT AUTO 0.6 % (1.0-3.0); HEMOGLOBIN 14.6 g/dL (12.0-16.0); IMMATURE GRAN ABSOLUTE AUTO 0.07 10^3/uL (0.00-0.04); IMMATURE GRAN PERCENT AUTO 0.6 % (0.0-0.4); LYMPHOCYTES ABSOLUTE AUTO 3.69 10^3/uL (1.00-4.00); LYMPHOCYTES PERCENT AUTO 31.2 % (20.0-40.0); MEAN CORPUSCULAR HEMOGLOBIN 29.7 pg (27.0-31.0); MEAN CORPUSCULAR HGB CONC 33.2 g/dL (32.0-36.0); MEAN CORPUSCULAR VOLUME 89.4 fL (82.0-92.0); MEAN PLATELET VOLUME 9.1 fL (7.4-10.4); MONOCYTES ABSOLUTE AUTO 0.73 10^3/uL (0.10-0.80); MONOCYTES PERCENT AUTO 6.2 % (2.0-8.0); NEUTROPHILS ABSOLUTE AUTO 7.24 10^3/uL (2.50-7.00); NEUTROPHILS PERCENT AUTO 61.1 % (50.0-70.0); PLATELET COUNT,PLT 349 10^3/uL (150-400); RED BLOOD CELL COUNT 4.92 10^6/uL (3.80-5.50); RED CELL DISTRIBUTION WIDTH 13.2 % (11.5-14.5); WHITE BLOOD CELL COUNT,WBC 11.83 10^3/uL (5.00-10.00)
[2024-12-05 05:57] LABS: APPEARANCE,URINE CLEAR (CLEAR); BILIRUBIN,URINE NEGATIVE (NEGATIVE); COLOR,URINE YELLOW (YELLOW); GLUCOSE,URINE NEGATIVE (NEGATIVE); KETONES,URINE NEGATIVE (NEGATIVE); LEUKOCYTE ESTERASE,URINE NEGATIVE (NEGATIVE); NITRITE,URINE NEGATIVE (NEGATIVE); OCCULT BLOOD,URINE NEGATIVE (NEGATIVE); PROTEIN,URINE NEGATIVE (NEGATIVE); UROBILINOGEN,URINE 0.2 E.U./dL (0.2-1.0)
[2024-12-05 06:04] LABS: AMPHETAMINES SCREEN, URINE NEGATIVE (NEGATIVE); BARBITURATE SCREEN,URINE NEGATIVE (NEGATIVE); BENZODIAZEPINES SCREEN,URINE NEGATIVE (NEGATIVE); COCAINE METABOLITES,URINE NEGATIVE (NEGATIVE); METHADONE SCREEN, URINE NEGATIVE (NEGATIVE); METHAMPHETAMINES SCREEN, URINE NEGATIVE (NEGATIVE); OXYCODONE SCREEN,URINE NEGATIVE (NEGATIVE); PCP SCREEN,URINE NEGATIVE (NEGATIVE); TCA SCREEN,URINE NEGATIVE (NEGATIVE); THC SCREEN,URINE 50 NG/ML NEGATIVE (NEGATIVE)
[2024-12-05 06:11] LABS: ALBUMIN 4.21 g/dL (3.40-5.00); ANION GAP 12.8 mmol/L (5-15); BILIRUBIN TOTAL 0.3 mg/dL (0.2-1.0); CALCIUM 9.5 mg/dL (8.7-10.3); CARBON DIOXIDE,CO2 29.5 mmol/L (21.0-32.0); CREATININE 0.73 mg/dL (0.51-1.17); EST CRCL DRUG DOSING (CG) 94.84 mL/min; POTASSIUM,K 4.3 mmol/L (3.5-5.1); PROTEIN TOTAL,TP 8.6 g/dL (6.4-8.2)
[2024-12-05] MEDS: Acetaminophen 325 MG Tab PO ONE (06:31)
[2024-12-05 09:56] VITALS: BP 115/62; PULSE 97
== END 2024-12-05 09:45 ==
LOC: KA.ED 04:32
DX: F32.A Depression, unspecified (principal); R45.851 Suicidal ideations; F10.129 Alcohol abuse with intoxication, unspecified; K21.9 Gastro-esophageal reflux disease without esophagitis; E66.9 Obesity, unspecified; F17.210 Nicotine dependence, cigarettes, uncomplicated; Z68.41 Body mass index [BMI] 40.0-44.9, adult; Z88.8 Allergy status to other drugs, medicaments and biological substances; Z79.899 Other long term (current) drug therapy; Z86.16 Personal history of COVID-19; Z90.49 Acquired absence of other specified parts of digestive tract
CPT/HCPCS: 80053; 80143; 80305-QW; 80307; 81003; 81025; 83735; 85025; 99285; A9270-GY